=== PATIENT | female | born 1985 | race Caucasian/White ===

== ENCOUNTER 2016-05-03 16:36 | Observation (INO) | payer MEDICAID ==
[~2016-05-03] VITALS: Ht 165.1 cm; Wt 77.1 kg
[~2016-05-03 16:36] MED LIST: FERR-43 PO; PREN-88 PO
[2016-05-03] MEDS ORDERED: PREN-88 PO (17:32)
[2016-05-03] MEDS ORDERED: METF500T4 PO (17:32)
== END 2016-05-03 18:20 | disposition home or self-care (01) ==
LOC: L&D 16:36
PROVIDERS: ADMIT Obstetrics & Gynecology; ATTEND Obstetrics & Gynecology
DX: O24.113 Pre-existing type 2 diabetes mellitus, in pregnancy, third trimester (principal); Z3A.37 37 weeks gestation of pregnancy
CPT/HCPCS: 59025; 76815; 76818; 82962; G0378

== ENCOUNTER 2017-02-21 16:02 | Emergency (ER) | payer MEDICAID ==
[~2017-02-21] VITALS: Ht 165.1 cm; Wt 73.0 kg
[~2017-02-21 16:02] MED LIST changes: -FERR-43 PO
[2017-02-21 20:15] VITALS: BP 119/80
[2017-02-21 20:25] LABS: BASOPHILS % 1.4 % (0.0-2.0); EOSINOPHILS % 5.2 % (0.0-5.0); HEMATOCRIT. 34.3 % (36.0-48.0); HEMOGLOBIN. 10.9 g/dL (12.0-16.0); LYMPHOCYTES % 36.8 % (20.0-50.0); MEAN CORPUSCULAR HEMOGLOBIN 20.8 pg (28.0-32.0); MEAN CORPUSCULAR VOLUME 65.4 fL (81.0-99.0); MEAN PLATELET VOLUME 8.5 fl (7.4-10.4); MONOCYTES % 6.3 % (2.0-8.0); NEUTROPHILS % 50.3 % (40.0-76.0); PLATELET 290 x1000/uL (130-400); RED BLOOD CELL COUNT 5.23 mill/uL (4.2-5.4); RED CELL DISTRIBUTION WIDTH 17.2 % (11.6-14.6)
[2017-02-21 20:29] LABS: HCG SCREEN NEGATIVE
[2017-02-21 20:34] LABS: B-HCG QUANTITATIVE < 1 mIU/mL (<3); CARBON DIOXIDE 27 mEq/L (21-32); CHLORIDE 104 mEq/L (98-107)
[2017-02-21] MEDS ORDERED: IBUPROFEN 800MG TABLET PO ONE (20:45)
[2017-02-21 21:15] LABS: PLATELET ESTIMATE NORMAL
== END 2017-02-21 22:22 | disposition home or self-care (01) ==
LOC: ER 16:54
DX: N93.8 Other specified abnormal uterine and vaginal bleeding (principal); R42 Dizziness and giddiness; M54.5 Low back pain; M79.605 Pain in left leg
CPT/HCPCS: 36415; 80048; 84702; 84703; 85025; 86850; 86900; 99284

== ENCOUNTER 2017-03-08 01:48 | Emergency (ER) | payer MEDICAID ==
[~2017-03-08] VITALS: Ht 162.6 cm; Wt 70.0 kg
[2017-03-08] MEDS ORDERED: SODIUM CHLORIDE 0.9% 1,000 ML IV ONE (02:05)
[2017-03-08] MEDS ORDERED: ACETAMINOPHEN 325MG TABLET PO STA (02:05)
[2017-03-08] MEDS ORDERED: SODIUM CHLORIDE 0.9% 1000ML BAG (SEPSIS BOLUS) IV ONE (03:30)
[2017-03-08 03:44] VITALS: BP 134/85
== END 2017-03-08 03:50 | disposition home or self-care (01) ==
LOC: ER 01:48
DX: B34.9 Viral infection, unspecified (principal)
CPT/HCPCS: 81025; 87804; 96360; 99284; J7030

== ENCOUNTER 2020-07-28 14:51 | Emergency (ER) | payer MEDICAID ==
[~2020-07-28] VITALS: Ht 165.1 cm; Wt 70.0 kg
[2020-07-28 15:57] LABS: BASOPHILS % 0.7 % (0.0-2.0); EOSINOPHILS % 4.8 % (0.0-5.0); HEMATOCRIT. 28.2 % (36.0-48.0); HEMOGLOBIN. 8.9 g/dL (12.0-16.0); LYMPHOCYTES % 31.2 % (20.0-50.0); MEAN CORPUSCULAR HEMOGLOBIN 18.7 pg (28.0-32.0); MEAN CORPUSCULAR VOLUME 59.3 fL (81.0-99.0); MEAN PLATELET VOLUME 8.8 fl (7.4-10.4); MONOCYTES % 6.7 % (2.0-8.0); NEUTROPHILS % 56.6 % (40.0-76.0); PLATELET 230 x1000/uL (130-400); RED BLOOD CELL COUNT 4.75 mill/uL (4.2-5.4); RED CELL DISTRIBUTION WIDTH 20.2 % (11.6-14.6)
[2020-07-28 16:02] LABS: CHLORIDE 107 mEq/L (98-107)
[2020-07-28 16:03] LABS: CLARITY URINE CLEAR (CLEAR); COLOR URINE YELLOW (YELLOW); KETONES URINE TRACE (NEGATIVE); LEUKOCYTE ESTERASE URINE NEGATIVE (NEGATIVE); NITRITE URINE NEGATIVE (NEGATIVE); OCCULT BLOOD URINE 2+ (NEGATIVE); PROTEIN URINE NEGATIVE (NEGATIVE); SPECIFIC GRAVITY URINE 1.037 (1.005-1.030); UROBILINOGEN URINE 0.2 E.U./dL (0.2-1.0)
[2020-07-28 16:25] LABS: B-HCG QUANTITATIVE 31249 mIU/mL (<3)
[2020-07-28 16:40] LABS: PLATELET ESTIMATE NORMAL
[2020-07-28] MEDS ORDERED: NITR-87 MT (17:42)
[2020-07-28 18:15] VITALS: BP 121/79
== END 2020-07-28 18:20 | disposition home or self-care (01) ==
LOC: ER 14:51
DX: O20.0 Threatened abortion (principal); Z3A.13 13 weeks gestation of pregnancy
CPT/HCPCS: 36415; 76801; 80053; 81003; 84702; 85025; 86850; 86900; 99284

== ENCOUNTER 2021-12-16 10:47 | Emergency (ER) | payer MEDICAID ==
[~2021-12-16] VITALS: Ht 165.1 cm; Wt 85.0 kg
[~2021-12-16 10:47] MED LIST changes: +NITR-87 MT
[2021-12-16 10:58] VITALS: BP 141/83
[2021-12-16] MEDS ORDERED: FLUORESCEIN SODIUM 1MG/STRIP RIGHTEYE ONE (11:30)
[2021-12-16] MEDS ORDERED: TETRACAINE 0.5% OPHTH DROPS 4ML RIGHTEYE ONE (11:30)
== END 2021-12-16 13:43 | disposition home or self-care (01) ==
LOC: ER 10:47
DX: H11.31 Conjunctival hemorrhage, right eye (principal)
CPT/HCPCS: 99283

== ENCOUNTER 2024-05-13 15:40 | Emergency (ER) | payer MEDICAID ==
[~2024-05-13] VITALS: Ht 165.1 cm; Wt 62.0 kg
[2024-05-13 15:45] VITALS: O2SAT 100
[2024-05-13 15:57] VITALS: BP 122/79; PULSE 110; RESP 12; TEMP 36.7; O2SAT 100
[2024-05-13 17:37] LABS: BASOPHILS % 1.7 % (0.0-2.0); EOSINOPHILS % 4.9 % (0.0-5.0); HEMATOCRIT. 29.9 % (36.0-48.0); HEMOGLOBIN. 8.4 g/dL (12.0-16.0); LYMPHOCYTES % 33.2 % (20.0-50.0); MEAN CORPUSCULAR HEMOGLOBIN 15.9 pg (28.0-32.0); MEAN CORPUSCULAR HGB CONC 28.1 g/dL (31.0-37.0); MEAN CORPUSCULAR VOLUME 56.5 fL (81.0-99.0); MEAN PLATELET VOLUME 8.8 fl (7.4-10.4); NEUTROPHILS % 55.2 % (40.0-76.0); PLATELET 353 x1000/uL (130-400); RED CELL DISTRIBUTION WIDTH 19.9 % (11.6-14.6); WHITE BLOOD COUNT 6.9 x1000/uL (4.5-11.0)
[2024-05-13 17:41] LABS: ADD RBC MORPHOLOGY YES; DIFFERENTIAL COMMENT 1
[2024-05-13 17:49] LABS: CHLORIDE 103 mEq/L (98-107); POTASSIUM 3.8 mEq/L (3.5-5.1); SODIUM 137 mEq/L (136-145)
[2024-05-13 17:50] LABS: CALCIUM 9.3 mg/dL (8.7-10.4); CARBON DIOXIDE 23 mEq/L (21-32)
[2024-05-13 17:55] LABS: CREATININE 0.5 mg/dL (0.6-1.0); GLUCOSE 244 mg/dL (70-105); UREA NITROGEN BLOOD 6 mg/dL (9-23)
[2024-05-13 18:09] LABS: B-HCG QUANTITATIVE 53059 mIU/mL (<6)
[2024-05-13 18:18] LABS: ANISOCYTOSIS 1+; HYPOCHROMASIA 3+; MICROCYTOSIS 3+; PLATELET ESTIMATE NORMAL
[2024-05-13 18:35] LABS: CLARITY URINE CLEAR (CLEAR); COLOR URINE YELLOW (YELLOW); GLUCOSE URINE 3+ (NEGATIVE); KETONES URINE TRACE (NEGATIVE); LEUKOCYTE ESTERASE URINE NEGATIVE (NEGATIVE); NITRITE URINE NEGATIVE (NEGATIVE); OCCULT BLOOD URINE 3+ (NEGATIVE); PH URINE 6.5 (4.5-8.0); PROTEIN URINE NEGATIVE (NEGATIVE); SPECIFIC GRAVITY URINE 1.022 (1.005-1.030); UROBILINOGEN URINE 0.2 E.U./dL (0.2-1.0)
[2024-05-13 18:49] LABS: BACTERIA URINE NONE SEEN; RBC URINE 0-2 /hpf (0-2); SQUAMOUS EPITHELIAL CELL URINE FEW /lpf (RARE/1+); WBC URINE NONE SEEN /hpf (0-2)
== END 2024-05-13 18:58 | disposition home or self-care (01) ==
LOC: ER 15:40
DX: O20.9 Hemorrhage in early pregnancy, unspecified (principal); O24.111 Pre-existing type 2 diabetes mellitus, in pregnancy, first trimester; O10.911 Unspecified pre-existing hypertension complicating pregnancy, first trimester; Z3A.10 10 weeks gestation of pregnancy; Z79.4 Long term (current) use of insulin
CPT/HCPCS: 36415; 76801; 80048; 81003; 81025; 84702; 85025; 86850; 86900; 99284

== ENCOUNTER 2024-06-04 14:52 | Emergency (ER) | payer MEDICAID ==
[~2024-06-04] VITALS: Ht 167.6 cm; Wt 77.0 kg
[2024-06-04 15:14] VITALS: O2SAT 99
[2024-06-04 17:00] VITALS: BP 120/78; PULSE 104; RESP 18; TEMP 36.9; O2SAT 99
[2024-06-04 17:43] LABS: ADD RBC MORPHOLOGY YES; BASOPHILS % 1.2 % (0.0-2.0); DIFFERENTIAL COMMENT 1; EOSINOPHILS % 4.8 % (0.0-5.0); HEMATOCRIT. 28.5 % (36.0-48.0); HEMOGLOBIN. 8.4 g/dL (12.0-16.0); LYMPHOCYTES % 27.4 % (20.0-50.0); MEAN CORPUSCULAR HEMOGLOBIN 16.8 pg (28.0-32.0); MEAN CORPUSCULAR HGB CONC 29.3 g/dL (31.0-37.0); MEAN CORPUSCULAR VOLUME 57.4 fL (81.0-99.0); MEAN PLATELET VOLUME 9.1 fl (7.4-10.4); MONOCYTES % 5.3 % (2.0-8.0); NEUTROPHILS % 61.3 % (40.0-76.0); PLATELET 286 x1000/uL (130-400); RED BLOOD CELL COUNT 4.97 mill/uL (4.2-5.4); RED CELL DISTRIBUTION WIDTH 22.6 % (11.6-14.6); WHITE BLOOD COUNT 7.6 x1000/uL (4.5-11.0)
[2024-06-04 17:54] LABS: CARBON DIOXIDE 20 mEq/L (21-32); CHLORIDE 105 mEq/L (98-107); POTASSIUM 3.7 mEq/L (3.5-5.1); SODIUM 135 mEq/L (136-145)
[2024-06-04 17:55] LABS: CALCIUM 8.6 mg/dL (8.7-10.4)
[2024-06-04 17:58] LABS: HCG SCREEN POSITIVE
[2024-06-04 18:00] LABS: CREATININE 0.5 mg/dL (0.6-1.0); GLUCOSE 168 mg/dL (70-105); UREA NITROGEN BLOOD < 5 mg/dL (9-23)
[2024-06-04 18:19] LABS: ANISOCYTOSIS 2+; HYPOCHROMASIA 3+; MICROCYTOSIS 3+; PLATELET ESTIMATE NORMAL
[2024-06-04 18:29] LABS: B-HCG QUANTITATIVE 47048 mIU/mL (<6)
[2024-06-04 18:58] LABS: CLARITY URINE CLEAR (CLEAR); COLOR URINE YELLOW (YELLOW); GLUCOSE URINE 2+ (NEGATIVE); KETONES URINE TRACE (NEGATIVE); LEUKOCYTE ESTERASE URINE NEGATIVE (NEGATIVE); NITRITE URINE NEGATIVE (NEGATIVE); OCCULT BLOOD URINE 2+ (NEGATIVE); PROTEIN URINE NEGATIVE (NEGATIVE); SPECIFIC GRAVITY URINE 1.009 (1.005-1.030); UROBILINOGEN URINE 0.2 E.U./dL (0.2-1.0)
[2024-06-04 20:10] LABS: BACTERIA URINE TRACE; SQUAMOUS EPITHELIAL CELL URINE FEW /lpf (RARE/1+); WBC URINE 0-2 /hpf (0-2)
== END 2024-06-04 20:32 | disposition home or self-care (01) ==
LOC: ER 15:31
DX: O20.0 Threatened abortion (principal); O10.911 Unspecified pre-existing hypertension complicating pregnancy, first trimester; O24.111 Pre-existing type 2 diabetes mellitus, in pregnancy, first trimester; Z3A.12 12 weeks gestation of pregnancy
CPT/HCPCS: 36415; 76801; 80048; 81003; 84702; 84703; 85025; 86850; 86900; 99284

== ENCOUNTER 2024-08-14 21:09 | Emergency (ER) | payer MEDICAID ==
[~2024-08-14] VITALS: Ht 165.1 cm; Wt 68.0 kg
[2024-08-14 21:33] VITALS: O2SAT 98
[2024-08-14 22:13] LABS: CLARITY URINE CLOUDY (CLEAR); COLOR URINE YELLOW (YELLOW); GLUCOSE URINE NEGATIVE (NEGATIVE); KETONES URINE TRACE (NEGATIVE); LEUKOCYTE ESTERASE URINE 3+ (NEGATIVE); NITRITE URINE NEGATIVE (NEGATIVE); OCCULT BLOOD URINE TRACE (NEGATIVE); PH URINE 6.5 (4.5-8.0); PROTEIN URINE 1+ (NEGATIVE); SPECIFIC GRAVITY URINE 1.016 (1.005-1.030); UROBILINOGEN URINE 0.2 E.U./dL (0.2-1.0)
[2024-08-14 22:32] LABS: BACTERIA URINE 2+; RBC URINE 0-2 /hpf (0-2); SQUAMOUS EPITHELIAL CELL URINE 1+ /lpf (RARE/1+); WBC URINE TNTC /hpf (0-2)
[2024-08-14] MEDS: ACETAMINOPHEN 500MG TABLET PO SCH (22:47)
[2024-08-14] MEDS: SODIUM CHLORIDE 0.9% 1,000 ML IV ONE (22:49)
[2024-08-14] MEDS: CEFTRIAXONE 1GM/50ML 50 ML IV ONE (22:49)
[2024-08-14 22:52] LABS: BASOPHILS % 1.0 % (0.0-2.0); EOSINOPHILS % 4.3 % (0.0-5.0); HEMATOCRIT. 28.7 % (36.0-48.0); HEMOGLOBIN. 8.5 g/dL (12.0-16.0); LYMPHOCYTES % 23.2 % (20.0-50.0); MEAN PLATELET VOLUME 8.6 fl (7.4-10.4); MONOCYTES % 5.7 % (2.0-8.0); NEUTROPHILS % 65.8 % (40.0-76.0); PLATELET 269 x1000/uL (130-400); RED BLOOD CELL COUNT 5.18 mill/uL (4.2-5.4); RED CELL DISTRIBUTION WIDTH 19.0 % (11.6-14.6)
[2024-08-14 22:53] LABS: ADD RBC MORPHOLOGY YES
[2024-08-14 22:57] LABS: PLATELET ESTIMATE NORMAL
[2024-08-14 22:59] VITALS: TEMP 37.1
[2024-08-14 23:08] LABS: CREATININE 0.4 mg/dL (0.6-1.0); UREA NITROGEN BLOOD < 5 mg/dL (9-23)
[2024-08-14 23:23] LABS: B-HCG QUANTITATIVE 10504 mIU/mL (<6)
[2024-08-14] MEDS: POTASSIUM CHLORIDE 20MEQ/PACKET PO SCH (23:31)
[2024-08-15 00:30] VITALS: BP 134/87; PULSE 100; RESP 25; O2SAT 100
== END 2024-08-15 00:59 | disposition short-term general hospital (02) ==
LOC: ER 21:09
DX: O23.42 Unspecified infection of urinary tract in pregnancy, second trimester (principal); N39.0 Urinary tract infection, site not specified; O10.912 Unspecified pre-existing hypertension complicating pregnancy, second trimester; O24.112 Pre-existing type 2 diabetes mellitus, in pregnancy, second trimester; O26.892 Other specified pregnancy related conditions, second trimester; R10.9 Unspecified abdominal pain; N89.8 Other specified noninflammatory disorders of vagina; Z98.890 Other specified postprocedural states; Z79.899 Other long term (current) drug therapy; Z3A.23 23 weeks gestation of pregnancy
CPT/HCPCS: 80048; 81003; 84702; 85025; 86850; 86900; 86901; 87086; 87186; 87077; 36415; 76805; 76817; 96361; 96365; 99291; J0696; Z7610 ×2; A4606